=== PATIENT | female | born 1990 | race Caucasian/White ===

== ENCOUNTER 2018-12-20 20:21 | Emergency (ER) | payer BC ==
--- NOTE | 2018-12-20 20:46 | EDM.PDOC ---
ED HPI GENERAL MEDICAL PROBLEM - General Chief Complaint: Laceration Stated Complaint: Sliced finger open Time Seen by Provider: 12/20/18 20:30 Source of Information: Reports: Patient, RN Notes Reviewed History Limitations: Reports: No Limitations - History of Present Illness INITIAL COMMENTS - FREE TEXT/NARRATIVE: Slicing zucchini [employer] and sliced right thumb.Unable to stop bleeding. Up to date with immunization. - Related Data Allergies Allergy/AdvReac Type Severity Reaction Status Date / Time No Known Allergies Allergy Verified 12/20/18 20:45 Home Meds: Home Meds . [No Known Home Meds] 12/20/18 [History] ED ROS GENERAL - Review of Systems Review Of Systems: ROS reveals no pertinent complaints other than HPI. ED EXAM, SKIN/RASH Exam: See Below Exam Limited By: No Limitations General Appearance: Alert, No Apparent Distress Ears: Normal External Exam, Hearing Grossly Normal Throat/Mouth: Normal Voice Head: Atraumatic, Normocephalic Neck: Normal Inspection, Full Range of Motion Respiratory/Chest: No Respiratory Distress Cardiovascular: Regular Rate, Rhythm Extremities: Normal Range of Motion Neurological: Alert, Oriented Psychiatric: Normal Affect Skin: Wound/Incision ([id number] circular shaved deep superficial laceration distal palm surface ,active bleeding. ) Associated features: Tenderness ED SKIN PROCEDURES - Laceration/Wound Repair Left Digit - 1st (Thumb) Appearance: Superficial Distal NVT: Neuro & Vascular Intact Skin Prep: Chlorhexidine (Hibiciens), Saline Closed with: Other (surgicel 4x4) Sterile Dressing Applied: Provider Course - Vital Signs Last Recorded V/S: Last Vital Signs Temp 97.7 F 12/20/18 20:31 Pulse 87 12/20/18 20:31 Resp 17 12/20/18 20:31 BP 120/81 12/20/18 20:31 Pulse Ox 99 12/20/18 20:31 Departure - Departure Time of Disposition: 20:46 Disposition: Home, Self-Care 01 Condition: Good Clinical Impression: Broken skin - Discharge Information *PRESCRIPTION DRUG MONITORING PROGRAM REVIEWED*: Not Applicable *COPY OF PRESCRIPTION DRUG MONITORING REPORT IN PATIENT REHAN: Not Applicable Instructions: Laceration Care, Adult, [id number] Forms: ED Department Discharge Additional Instructions: May remove dressing after 24 hours- moisten dressing to remove keep clean and dry, wash with soap and water twice daily cover with nonadherent dressing tylenol for discomfort follwo up if redness swelling or drainage
== END 2018-12-20 20:58 | disposition home or self-care (01) ==
LOC: DL.ED 20:21
DX: S61.012A Laceration without foreign body of left thumb without damage to nail, initial encounter (principal); W26.8XXA Contact with other sharp object(s), not elsewhere classified, initial encounter
CPT/HCPCS: 99282